=== PATIENT | female | born 1975 | race Caucasian/White ===

== ENCOUNTER 2017-01-29 13:18 | Emergency (ER) | payer MEDICAID ==
[~2017-01-29] VITALS: Ht 162.6 cm; Wt 77.3 kg
[2017-01-29] MEDS ORDERED: HYDROCODONE/ACETAMINOPHEN 5-325 MG TABLET PO ONE (15:30)
[2017-01-29 16:24] VITALS: BP 128/71
== END 2017-01-29 16:25 | disposition home or self-care (01) ==
LOC: EMS 13:21
DX: S52.515A Nondisplaced fracture of left radial styloid process, initial encounter for closed fracture (principal); W19.XXXA Unspecified fall, initial encounter; Y93.89 Activity, other specified; Y92.89 Other specified places as the place of occurrence of the external cause; Y99.8 Other external cause status
CPT/HCPCS: 99284